=== PATIENT | male | born 1950 | race Caucasian/White ===

== ENCOUNTER 2016-06-25 06:40 | Inpatient (IN) | payer OTHER ==
[~2016-06-25] VITALS: Ht 185.4 cm; Wt 102.1 kg
[~2016-06-25 06:40] MED LIST: AMLO5TAB2 PO; ASPI1TAB PO; CELE20TA PO; LISI40TAB PO; PRAV40TA2 PO; ZYLO300T4 PO
[2016-06-25] MEDS ORDERED: LR 1,000 ML IV SCH ×2 (07:45→16:30)
[2016-06-25] MEDS: DOCUSATE SODIUM 100 MG CAP PO SCH ×2 (09:00→20:37)
[2016-06-25] MEDS ORDERED: MIDAZOLAM INJ 2 MG/2 ML VIAL (J2250) As Ordered ONE (09:41)
[2016-06-25] MEDS ORDERED: fentaNYL 250 MCG/5 ML INJECTION (J3010) As Ordered ONE (09:42)
[2016-06-25] MEDS ORDERED: LIDOCAINE 2% INJ 100 MG/5 ML SDV (FOR ANES.) As Ordered ONE (09:43)
[2016-06-25] MEDS ORDERED: PROPOFOL 200 MG/20 ML VIAL As Ordered ONE (09:44)
[2016-06-25] MEDS ORDERED: ROCURONIUM BROMIDE 50 MG/5 ML VIAL As Ordered ONE (09:45)
[2016-06-25] MEDS ORDERED: MORPHINE 2 MG/ML 1ML SYRINGE IV PRN (09:45)
[2016-06-25] MEDS ORDERED: ACETAMINOPHEN TAB 650MG DOSE (2X325MG) PO PRN (09:45)
[2016-06-25] MEDS ORDERED: ONDANSETRON 4MG/2ML VIAL (J2405) IV PRN (09:45)
[2016-06-25] MEDS ORDERED: LIDOCAINE 1% SDV INJ 30 ML VIAL As Ordered ONE (09:46)
[2016-06-25] MEDS ORDERED: BUPIVACAINE HCL 0.25% 30 ML VIAL As Ordered ONE (09:46)
[2016-06-25] MEDS ORDERED: dexameTHASONE 4 MG/ML 1ML VIAL (J1100) As Ordered ONE (10:45)
[2016-06-25] MEDS ORDERED: METOCLOPRAMIDE INJ 10MG/2ML VIAL (J2765) As Ordered ONE (10:45)
[2016-06-25] MEDS ORDERED: BUPIVACAINE HCL 0.25% 30 ML VIAL XX ONE (11:39)
[2016-06-25] MEDS ORDERED: LIDOCAINE 1% SDV INJ 30 ML VIAL XX ONE (11:39)
[2016-06-25] MEDS ORDERED: NEOSTIGMINE 1MG/ML 5 ML SYRINGE (J2710) As Ordered ONE (15:32)
[2016-06-25] MEDS ORDERED: GLYCOPYRROLATE INJ 0.2 MG/ML 2 ML VIAL As Ordered ONE (15:33)
[2016-06-25] MEDS ORDERED: ONDANSETRON 4MG/2ML VIAL (J2405) As Ordered ONE (15:38)
[2016-06-25] MEDS ORDERED: fentaNYL 100 MCG/2 ML INJECTION (J3010) IV PRN (16:30)
[2016-06-25] MEDS ORDERED: HYDROmorphone HCL 1 MG/ML SYRINGE (J1170) IV PRN (16:30)
[2016-06-25] MEDS ORDERED: PERCOCET 5MG/325MG TAB PO PRN (16:30)
[2016-06-25 16:33] LABS: MEAN CORPUSCULAR HEMOGLOBIN 32.1 pg (27.0-33.0); MEAN CORPUSCULAR HGB CONC 34.5 g/dl (32.0-36.5); MEAN CORPUSCULAR VOLUME 93.1 fl (80.0-96.0); RED CELL DISTRIBUTION WIDTH 14.7 % (11.5-14.5); WHITE BLOOD COUNT 17.6 K/mm3 (4.0-10.0)
[2016-06-25 16:37] LABS: CALCIUM LEVEL 8.3 MG/DL (8.8-10.2); CREATININE FOR GFR 1.52 MG/DL (0.70-1.30); GLOMERULAR FILTRATION RATE 49.4 (>49); POTASSIUM SERUM 4.4 MEQ/L (3.5-5.1)
--- NOTE | 2016-06-25 16:51 | ROOPDOC ---
[facility] Report Of Operation Report of Operation DATE OF PROCEDURE: 06/25/16 PREPROCEDURE DIAGNOSIS: Right Renal Mass POSTPROCEDURE DIAGNOSIS: Right Renal Mass PROCEDURE: Right Robotic-assisted Laparoscopic Radical Nephrectomy (adrenal- sparing) SURGEON: Yadiel Mccall MD WELT EDGE ROUNDER: Kisha Subramanian NP ANESTHESIA: General OPERATIVE INDICATIONS: This is a 66 year old male who was recently found to have an 8cm enhancing right renal mass concerning for malignancy. It was recommended that he undergo the above-listed procedure for treatment. DESCRIPTION OF PROCEDURE: The patient was brought to the operating room and general anesthesia was induced. Prophylactic antibiotics were infused. A Cabello catheter was placed under sterile conditions. The patient was then placed in the left lateral decubitus position. All pressure points were appropriately padded and an axillary roll was placed. He was secured to the table with tape. The patient was then prepped and draped in the usual sterile fashion. The initial incision was for a 12 mm port in line with the 11th rib along the lateral rectus margin. A Veress needle was then utilized to achieve the pneumoperitoneum. A 12 mm port was then placed in through this incision and through which the camera was inserted. There were no injuries from Veress needle placement or initial trocar placement. The remaining ports were then placed under vision. The right hand robotic port was placed along the costal margin as well as a 5 mm assistant warehouse manager port which was placed midway between the camera port and the right hand robotic port along the lateral rectus margin. Another 5 mm port was placed just inferior to the xyphoid for access for a liver retractor. The 15 mm assistant warehouse manager port was placed just inferior to the camera port, also on the lateral rectus margin. The left hand robotic port was placed between the anterior-superior iliac spine and the umbilicus. The robot was then docked. We began by lifting up the liver with a laparoscopic locking Allis clamp. Next the right colon was dissected off of Gerota's fascia. We then Kocherized the duodenum. At this point the inferior vena cava (IVC) was identified. A plane was made onto the lateral aspect of the IVC and this was carried cephalad until the right renal vein was encountered. This was carefully dissected and just inferior and posterior to the renal vein, the right renal artery was identified. This was also carefully dissected and then ligated with Weck clips. The artery was then transected, leaving 2 Weck clips on the stay side and 1 on the kidney side. Next, a laparoscopic 60 load stapler was utilized to ligate and transect the right renal vein. Once the hilum was taken, a plane onto the upper pole of the kidney was created and the right adrenal gland was mobilized off of the kidney. There did not appear to be any tumor involvement of the right adrenal gland. The kidney was then carefully dissected on all sides until it was only connected by the right ureter. The right ureter was then ligated with Weck clips and transected in between. At this point the kidney was completely free. The kidney was then placed in a large Endocatch bag for future retrieval. We then checked for hemostasis and it appeared excellent. Timmy hemostatic agent was then placed in the nephrectomy bed and along the inferior portion of the adrenal gland. Once satisfied with hemostasis, the robot was undocked. We then used a Dimple fascial closure device to place a #0 Vicryl free tie through the fascia of the 12 mm camera port site. We then connected the 15 mm assistant warehouse manager port and the left hand robotic port site incisions. We then dissected down to the fascia. The fascia was then extended using electrocautery. The muscle was bluntly spread. The specimen was then extracted through this incision. It was handed off the table to send for pathology. We then closed the extraction incision, starting first by reapproximating the muscle with figure of eight #0 Vicryl suture. The fascia was then closed using a running #0 Vicryl suture. At this point, the abdomen was reinsufflated and we looked back in with the camera and there was no bleeding underneath the extraction site. No abdominal contents were caught within the closure either. We then removed all the ports under direct vision and there was no bleeding from any of the port sites. At this point, the previously placed #0 Vicryl free tie was tied down and all the incisions were thoroughly irrigated. The subcutaneous tissue of the extraction incision was then reapproximated using interrupted #3-0 Vicryl suture. We then closed the skin of each site using a running #4-0 subcuticular Monocryl stitch. Local anesthetic was then applied to each incision and Dermabond was then applied and this marked the conclusion of the procedure. The patient was then taken out of the left lateral decubitus position, awakened from anesthesia and transported to the recovery room in stable condition. ESTIMATED BLOOD LOSS: 200 mL INTRAOPERATIVE COMPLICATIONS: None SPECIMENS: Right kidney PLAN: The patient will be admitted to the hospital postoperatively and he will be discharged home once his renal function is stable and he is tolerating regular diet. YADIEL MCCALL MD Jun 25, 2016 16:51
[2016-06-25 17:30] VITALS: BP 158/83
[2016-06-25] MEDS: NS 1,000 ML IV SCH ×2 (17:43→18:29)
[2016-06-25 18:00] VITALS: BP 158/83
[2016-06-25] MEDS: ceFAZolin SOD 1 GM in D5W MINI-BAG PLUS 50 ML IV SCH (18:25)
[2016-06-25 19:00] VITALS: BP 146/78
[2016-06-25] MEDS: ALLOPURINOL 300 MG TAB PO SCH (19:05)
[2016-06-25] MEDS: amLODIPine 5 MG TAB PO SCH (19:05)
[2016-06-25 20:00] VITALS: BP 142/76
[2016-06-25] MEDS: CitaloPRAM (CeleXA) 20 MG TAB PO SCH (20:37)
[2016-06-25] MEDS: PRAVASTATIN 20 MG TAB PO SCH (20:37)
[2016-06-25] MEDS: PERCOCET 5MG/325MG TAB PO PRN (20:39)
[2016-06-25 21:00] VITALS: BP 150/79
[2016-06-25 22:00] VITALS: BP 145/73
[2016-06-26] MEDS: ceFAZolin SOD 1 GM in D5W MINI-BAG PLUS 50 ML IV SCH (00:46)
[2016-06-26] MEDS: NS 1,000 ML IV SCH ×2 (00:46→11:36)
[2016-06-26] MEDS: PERCOCET 5MG/325MG TAB PO PRN ×6 (00:47→21:34)
[2016-06-26 02:00] VITALS: BP 136/74
[2016-06-26 05:39] LABS: MEAN CORPUSCULAR HEMOGLOBIN 31.4 pg (27.0-33.0); MEAN CORPUSCULAR HGB CONC 34.2 g/dl (32.0-36.5); MEAN CORPUSCULAR VOLUME 91.9 fl (80.0-96.0); RED CELL DISTRIBUTION WIDTH 14.7 % (11.5-14.5)
[2016-06-26 05:50] LABS: CALCIUM LEVEL 8.3 MG/DL (8.8-10.2); CREATININE FOR GFR 1.57 MG/DL (0.70-1.30); GLOMERULAR FILTRATION RATE 47.6 (>49); POTASSIUM SERUM 4.3 MEQ/L (3.5-5.1)
[2016-06-26 06:00] VITALS: BP 133/70
[2016-06-26] MEDS: ALLOPURINOL 300 MG TAB PO SCH (08:51)
[2016-06-26] MEDS: amLODIPine 5 MG TAB PO SCH (08:52)
[2016-06-26] MEDS: DOCUSATE SODIUM 100 MG CAP PO SCH ×2 (08:52→20:10)
[2016-06-26 10:00] VITALS: BP 138/68
--- NOTE | 2016-06-26 11:25 | IPNPDOC ---
Date of Service The patient was seen on 06/26/16. Patient Summary This is a 66 y/o M POD1 s/p right robotic-assisted laparoscopic radical nephrectomy. He is doing well. His pain is controlled. His Cr bumped a little to 1.6. His UOP is excellent. His Hb is stable at 12.2. Plan/VTE VTE Prophylaxis Ordered?: Yes VTE Exclusion Mechanical Proph: N/A:VTE Prophy Ordered Plan/Urinary Catheter Urinary Catheter: D/C Courtney Plan - d/c courtney - decrease IVF to 50cc/hr - percocet, morphine prn pain - ambulate as tolerated - strict I/Os - SCDs - continue home meds except AVELINO-I - incentive spirometry - advance diet as tolerated Review oF Systems CC/HPI Right Renal Mass Events since Last Encounter No acute events o/n. Good pain control. No n/v. No f/c/ns. Physical Examination General Exam: : Alert: Cooperative: No Acute Distress ENT EXAM: : Atraumatic ABDOMEN EXAM: : Other (incisions clean/dry/intact): Soft: Tenderness ( appropriately tender) Psych Exam: : Mental status NL: Mood NL Other physical findings catheter in place, draining clear urine Vital Signs/I&O Vital Signs Date Time Temp Pulse Resp B/P Pulse Ox O2 Delivery O2 Flow Rate FiO2 06/26/16 10:00 97.4 85 20 138/68 94 Nasal Cannula 2.0 I&O- Last 24 Hours up to 6 AM 06/26/16 06:00 Intake Total 4670 ml Output Total 2240 ml Balance 2430 ml Laboratory Data Labs 24H Laboratory Tests 2 06/25/16 16:05: Anion Gap 13, Blood Urea Nitrogen 17, Creatinine 1.52H, Sodium Level 140, Potassium Level 4.4, Chloride Level 104, Carbon Dioxide Level 23, Calcium Level 8.3L, Glomerular Filtration Rate 49.4 06/26/16 05:28: Anion Gap 11, Blood Urea Nitrogen 18, Creatinine 1.57H, Sodium Level 139, Potassium Level 4.3, Chloride Level 102, Carbon Dioxide Level 26, Calcium Level 8.3L, Glomerular Filtration Rate 47.6L CBC/BMP Laboratory Tests 06/25/16 16:05 Calcium Level 8.3 L, Red Blood Count 4.10 L, Mean Corpuscular Volume 93.1, Mean Corpuscular Hemoglobin 32.1, Mean Corpuscular Hemoglobin Concent 34.5, Red Cell Distribution Width 14.7 H 06/26/16 05:28 Calcium Level 8.3 L, Red Blood Count 3.89 L, Mean Corpuscular Volume 91.9, Mean Corpuscular Hemoglobin 31.4, Mean Corpuscular Hemoglobin Concent 34.2, Red Cell Distribution Width 14.7 H YADIEL MCCALL MD Jun 26, 2016 11:25
[2016-06-26 14:00] VITALS: BP 132/67
[2016-06-26 18:00] VITALS: BP 147/79
[2016-06-26] MEDS: PRAVASTATIN 20 MG TAB PO SCH (20:10)
[2016-06-26] MEDS: CitaloPRAM (CeleXA) 20 MG TAB PO SCH (20:10)
[2016-06-26 22:00] VITALS: BP 145/83
[2016-06-27] MEDS: PERCOCET 5MG/325MG TAB PO PRN ×3 (01:52→09:53)
[2016-06-27 02:00] VITALS: BP 148/67
[2016-06-27 06:00] VITALS: BP 138/75
[2016-06-27 06:29] LABS: MEAN CORPUSCULAR HEMOGLOBIN 31.7 pg (27.0-33.0); MEAN CORPUSCULAR HGB CONC 34.1 g/dl (32.0-36.5); MEAN CORPUSCULAR VOLUME 93.1 fl (80.0-96.0); RED CELL DISTRIBUTION WIDTH 13.8 % (11.5-14.5); WHITE BLOOD COUNT 11.2 K/mm3 (4.0-10.0)
[2016-06-27 06:39] LABS: CALCIUM LEVEL 8.4 MG/DL (8.8-10.2); CREATININE FOR GFR 1.35 MG/DL (0.70-1.30); GLOMERULAR FILTRATION RATE 56.6 (>49)
[2016-06-27 08:38] VITALS: BP 138/75
[2016-06-27] MEDS: DOCUSATE SODIUM 100 MG CAP PO SCH (08:38)
[2016-06-27] MEDS: ALLOPURINOL 300 MG TAB PO SCH (08:38)
[2016-06-27] MEDS: amLODIPine 5 MG TAB PO SCH (08:38)
--- NOTE | 2016-06-27 11:23 | IPNPDOC ---
Date of Service The patient was seen on 06/27/16. Patient Summary This is a 66 y/o M POD2 s/p right robotic-assisted laparoscopic radical nephrectomy. He is doing well. His Cr has started trending down, now 1.4. His UOP has been excellent. His Hb is stable and vitals are w/i normal limits. Plan/VTE VTE Prophylaxis Ordered?: Yes VTE Exclusion Mechanical Proph: N/A:VTE Prophy Ordered Plan - percocet prn pain - strict I/Os - SCDs - incentive spirometry - regular diet - plan for discharge home today Review oF Systems CC/HPI Right Renal Mass Events since Last Encounter No acute events o/n. Good pain control w/ percocet. No n/v. Passing flatus. Tolerating regular diet. Ambulating well. No f/c/ns. Physical Examination General Exam: : Alert: Cooperative: No Acute Distress ENT EXAM: : Atraumatic ABDOMEN EXAM: : Other (incisions clean/dry/intact): Soft: Tenderness ( appropriately tender) Psych Exam: : Mental status NL: Mood NL Vital Signs/I&O Vital Signs Date Time Temp Pulse Resp B/P Pulse Ox O2 Delivery O2 Flow Rate FiO2 06/27/16 10:31 16 06/27/16 09:55 96 Room Air 06/27/16 09:20 1.0 06/27/16 08:38 80 138/75 06/27/16 08:14 98.6 I&O- Last 24 Hours up to 6 AM 06/27/16 06:00 Intake Total 3030 ml Output Total 2950 ml Balance 80 ml Laboratory Data Labs 24H Laboratory Tests 2 06/27/16 05:39: Anion Gap 8, Blood Urea Nitrogen 16, Creatinine 1.35H, Sodium Level 142, Potassium Level 4.0, Chloride Level 105, Carbon Dioxide Level 29, Calcium Level 8.4L, Glomerular Filtration Rate 56.6 CBC/BMP Laboratory Tests 06/27/16 05:39 Calcium Level 8.4 L, Red Blood Count 3.51 L, Mean Corpuscular Volume 93.1, Mean Corpuscular Hemoglobin 31.7, Mean Corpuscular Hemoglobin Concent 34.1, Red Cell Distribution Width 13.8 YADIEL MCCALL MD Jun 27, 2016 11:23
[2016-06-27] MEDS ORDERED: OXYC1TAB23 PO (11:48)
[2016-06-27] MEDS ORDERED: TYLE325T5 PO (11:48)
[2016-06-27] MEDS ORDERED: COLA100C PO (11:48)
--- NOTE | 2016-06-29 07:10 | DSES ---
DATE OF ADMISSION: 06/25/2016 DATE OF DISCHARGE: 06/27/2016 ADMISSION DIAGNOSES: Right renal mass. DISCHARGE DIAGNOSES: Right renal mass. ADMITTING PHYSICIAN: Trey Ruiz MD. DISCHARGING PHYSICIAN; Trey Ruiz MD. PROCEDURE PERFORMED: Right robotic assisted laparoscopic radical nephrectomy on June 25, 2016. HISTORY OF PRESENT ILLNESS: This is a 66-year-old male with a large, enhancing 8 cm right renal mass who was brought to the hospital on June 25, 2016 for the above listed procedure. He was admitted to the hospital postoperatively. HOSPITAL COURSE: The patient was admitted to the hospital after undergoing the above listed procedure. His postoperative course was unremarkable. On postoperative day one his serum creatinine seemed to be stable at 1.6. His hemoglobin level was stable. He was making excellent urine output. His pain was controlled with a combination of Percocet and morphine. His Cabello catheter was removed on postoperative day one and he voided without any difficulty. By postoperative day two his serum creatinine improved even more to 1.4 and his urine output continued to be excellent. His hemoglobin continued to be stable. By postoperative day two his pain was controlled only with Percocet. He was tolerating a regular diet and he was passing flatus indicating return of bowel function. He was ambulating well and therefore he was deemed ready for discharge on postoperative day two. The patient was therefore discharged home in good condition with the plan to followup in the clinic in about 1-2 weeks to discuss pathology results. LINDA
== END 2016-06-27 12:34 | disposition home or self-care (01) | DRG 442 ==
LOC: M OR 06:40 → M MS5PR 17:05
PROVIDERS: ADMIT Urology; ATTEND Urology
PROC: 8E0W4CZ Robotic Assisted Procedure of Trunk Region, Percutaneous Endoscopic Approach (ICD-10-PCS; 2016-06-25)
PROC: 0TT04ZZ Resection of Right Kidney, Percutaneous Endoscopic Approach (ICD-10-PCS; principal; 2016-06-25 08:10)
DX: C64.1 Malignant neoplasm of right kidney, except renal pelvis (principal); Z79.82 Long term (current) use of aspirin; I10 Essential (primary) hypertension; Z79.899 Other long term (current) drug therapy; M10.9 Gout, unspecified

== ENCOUNTER → 2016-07-08 | Outpatient (CLI) | payer OTHER ==
[~2016-07-08] MED LIST changes: +COLA100C PO; +OXYC1TAB23 PO; +TYLE325T5 PO
[2016-07-08 14:23] LABS: ANION GAP 7 MEQ/L (8-16); BLOOD UREA NITROGEN 16 MG/DL (7-18); CALCIUM LEVEL 9.8 MG/DL (8.8-10.2); CARBON DIOXIDE LEVEL 29 MEQ/L (21-32); CHLORIDE LEVEL 106 MEQ/L (98-107); CREATININE FOR GFR 1.24 MG/DL (0.70-1.30); GLOMERULAR FILTRATION RATE > 60.0 (>49); GLUCOSE, FASTING 86 MG/DL (80-110); POTASSIUM SERUM 4.9 MEQ/L (3.5-5.1); SODIUM LEVEL 142 MEQ/L (136-145)
[2016-07-08 14:29] LABS: MEAN CORPUSCULAR HEMOGLOBIN 31.7 pg (27.0-33.0); MEAN CORPUSCULAR VOLUME 93.3 fl (80.0-96.0); RED CELL DISTRIBUTION WIDTH 13.9 % (11.5-14.5)
== END ==
LOC: M SMT 10:01
PROVIDERS: ATTEND Urology
DX: C64.9 Malignant neoplasm of unspecified kidney, except renal pelvis (principal); Z90.5 Acquired absence of kidney

== ENCOUNTER → 2017-01-03 | Outpatient (CLI) | payer OTHER ==
[~2017-01-03] MED LIST changes: -COLA100C PO; +COLA100C5 PO
[2017-01-03 13:30] LABS: MEAN CORPUSCULAR HGB CONC 34.8 g/dl (32.0-36.5); MEAN CORPUSCULAR VOLUME 92.1 fl (80.0-96.0); RED CELL DISTRIBUTION WIDTH 15.2 % (11.5-14.5)
[2017-01-03 14:44] LABS: CALCIUM LEVEL 9.3 MG/DL (8.8-10.2); CREATININE FOR GFR 1.37 MG/DL (0.70-1.30); GLOMERULAR FILTRATION RATE 55.7 (>49)
--- NOTE | 2017-01-03 23:01 | REP ---
Clinical: Neoplasm . Comparison: 06/22/2016 the . Technique: PA and lateral. Findings: The mediastinum and cardiac silhouette are normal. The lung valle are clear and without acute consolidation, effusion, or pneumothorax. The skeletal structures are intact and normal. Impression: 1. No acute cardiopulmonary process. Signed by Stefan Wells MD 01/03/2017 10:53 P
== END ==
LOC: M LAB 12:21
PROVIDERS: ATTEND Urology
DX: C64.9 Malignant neoplasm of unspecified kidney, except renal pelvis (principal); Z90.5 Acquired absence of kidney

== ENCOUNTER → 2017-01-11 | Outpatient (CLI) | payer OTHER ==
[~2017-01-11] MED LIST changes: +ISOVUE-370 76% 100ML VIAL (Q9967) As Ordered ONE
--- NOTE | 2017-01-11 09:32 | REP ---
CT abdomen, multiphase scanning, pelvis not included: Comparison is 06/04/2016. The patient has a history of renal carcinoma and a right nephrectomy. Scanning is initially performed without IV contrast. This is followed by IV contrast enhanced imaging during the portal venous phase of enhancement and later during the delayed equilibrium phase of enhancement. There is no bowel contrast. The visualized lung valle are unremarkable and unchanged. There is a focal zone of enhancement centrally in the right lobe of the liver as previously. This region of the liver was biopsied under CT guidance. Needle biopsy on 06/17/2016. No information concerning the pathology report of the biopsy. The remainder of the hepatic parenchyma is homogeneous and unchanged. The gallbladder, pancreas and spleen are normal size, unremarkable and unchanged. The right and left adrenals are unremarkable and unchanged. There has been interim right nephrectomy. There is no evidence of tumor recurrence in the right renal fossa. There are too small left renal cortical cysts, not significantly changed. Left kidney is otherwise unremarkable. The abdominal aorta is unremarkable. There is no retroperitoneal adenopathy. The visualized mesentery and bowel are unremarkable. There are no lytic, blastic or destructive skeletal changes. There is a lucent lesion containing trabeculations posteriorly in the T12 vertebral body on the right, unchanged, compatible with hemangioma. There are similar findings in the L4 vertebral body compatible with hemangioma, unchanged. Impression: Right nephrectomy. No evidence of tumor recurrence in the right renal fossa. No abdominal or retroperitoneal adenopathy. Focal lucent lesions containing a trabecular pattern in the T12 and L4 vertebral bodies, unchanged, compatible with focal hemangiomas. Previous liver biopsy. I have no information concerning the pathologic report on the biopsy specimen. Signed by Dante Cheng MD 01/11/2017 09:23 A
== END ==
LOC: M RAD 08:24
PROVIDERS: ATTEND Urology
DX: C64.9 Malignant neoplasm of unspecified kidney, except renal pelvis (principal)

== ENCOUNTER → 2017-07-26 | Outpatient (CLI) | payer OTHER ==
[2017-07-26 14:23] LABS: APPEARANCE, URINE CLEAR (CLEAR); BACTERIA, URINE AUTO NEGATIVE (NEGATIVE); BILIRUBIN, URINE AUTO NEGATIVE (NEGATIVE); BLOOD, URINE BLOOD NEGATIVE (NEGATIVE); COLOR, URINE YELLOW (YELLOW); GLUCOSE, URINE (UA) AUTO NEGATIVE (NEGATIVE); KETONE, URINE AUTO NEGATIVE (NEGATIVE); LEUKOCYTE ESTERASE, URINE AUTO NEGATIVE (NEGATIVE); MUCUS, URINE SMALL (NEGATIVE); NITRITE, URINE AUTO NEGATIVE (NEGATIVE); PROTEIN, URINE AUTO 1+ mg/dL (NEGATIVE); RBC, URINE AUTO 0 /HPF (0-3); SPECIFIC GRAVITY URINE AUTO 1.016 (1.002-1.035); SQUAMOUS EPITHELIAL CELL UR AU 0 /HPF (0-6); WBC, URINE AUTO 5 /HPF (0-3)
[2017-07-26 14:25] LABS: ANION GAP 8 MEQ/L (8-16); BLOOD UREA NITROGEN 9 MG/DL (7-18); CALCIUM LEVEL 9.1 MG/DL (8.8-10.2); CARBON DIOXIDE LEVEL 27 MEQ/L (21-32); CHLORIDE LEVEL 103 MEQ/L (98-107); CREATININE FOR GFR 1.25 MG/DL (0.70-1.30); GLOMERULAR FILTRATION RATE > 60.0 (>49); GLUCOSE, FASTING 110 MG/DL (70-100); POTASSIUM SERUM 3.8 MEQ/L (3.5-5.1); PSA SCREENING 0.45 NG/ML (< 4.0); SODIUM LEVEL 138 MEQ/L (136-145)
== END ==
LOC: M SMT 09:50
DX: C64.9 Malignant neoplasm of unspecified kidney, except renal pelvis (principal); Z90.5 Acquired absence of kidney; Z12.5 Encounter for screening for malignant neoplasm of prostate
CPT/HCPCS: 80048

== ENCOUNTER → 2017-07-29 | Outpatient (CLI) | payer OTHER ==
[~2017-07-29] MED LIST changes: -AMLO5TAB2 PO; -ASPI1TAB PO; -CELE20TA PO; -COLA100C5 PO; +ISOVUE-370 76% 100ML VIAL (Q9967) As Ordered; -ISOVUE-370 76% 100ML VIAL (Q9967) As Ordered ONE; -LISI40TAB PO; -OXYC1TAB23 PO; -PRAV40TA2 PO; -TYLE325T5 PO; -ZYLO300T4 PO
== END ==
LOC: M RAD 08:29
DX: C64.9 Malignant neoplasm of unspecified kidney, except renal pelvis (principal); Z90.5 Acquired absence of kidney
CPT/HCPCS: Q9967

== ENCOUNTER → 2017-12-06 | Outpatient (REF) | payer OTHER ==
[2017-12-06 11:47] LABS: BASO # 0.1 10^3/uL (0.0-0.2); BASO % 1.1 % (0.0-1.0); EOS # 0.2 10^3/uL (0.0-0.50); EOS % 3.5 % (0.0-3.0); HEMATOCRIT 46.1 % (42.0-52.0); HEMOGLOBIN 16.4 g/dl (13.5-17.5); IMMATURE GRANULOCYTE % 0.6 % (0-3.0); LYMPH # 1.1 10^3/uL (1.5-4.5); LYMPH % 17.2 % (24.0-44.0); MEAN CORPUSCULAR HEMOGLOBIN 31.9 pg (27.0-33.0); MEAN CORPUSCULAR HGB CONC 35.6 g/dl (32.0-36.5); MEAN CORPUSCULAR VOLUME 89.7 fl (80.0-96.0); MONO # 0.7 10^3/uL (0.0-0.8); MONO % 11.6 % (0.0-5.0); NEUTROPHILS # 4.1 10^3/uL (1.8-7.7); PLATELET COUNT, AUTOMATED 232 10^3/uL (150-450); RED BLOOD COUNT 5.14 10^6/uL (4.30-6.10); RED CELL DISTRIBUTION WIDTH 14.4 % (11.5-14.5); WHITE BLOOD COUNT 6.3 10^3/uL (4.0-10.0)
[2017-12-06 12:20] LABS: ALBUMIN 4.2 GM/DL (3.2-5.2); ALKALINE PHOSPHATASE 67 U/L (45-117); ALT/SGPT 36 U/L (12-78); ANION GAP 7 MEQ/L (8-16); AST/SGOT 23 U/L (7-37); BLOOD UREA NITROGEN 13 MG/DL (7-18); CALCIUM LEVEL 9.2 MG/DL (8.8-10.2); CARBON DIOXIDE LEVEL 26 MEQ/L (21-32); CHLORIDE LEVEL 105 MEQ/L (98-107); CHOLESTEROL LEVEL 208 MG/DL (<200); CHOLESTEROL RISK RATIO 5.777 (<5); CREATININE FOR GFR 1.11 MG/DL (0.70-1.30); GLOMERULAR FILTRATION RATE > 60.0 (>49); GLUCOSE, FASTING 91 MG/DL (70-100); HDL CHOLESTEROL 36 MG/DL (>40); NON-HDL-C 172 MG/DL; POTASSIUM SERUM 4.1 MEQ/L (3.5-5.1); PSA SCREENING 0.66 NG/ML (< 4.0); SODIUM LEVEL 138 MEQ/L (136-145); TOTAL PROTEIN 7.7 GM/DL (6.4-8.2); TRIGLYCERIDES LEVEL 604 MG/DL (<150)
[2017-12-06 12:22] LABS: ESTIMATED AVERAGE GLUCOSE 111 MG/DL (60-110); HEMOGLOBIN A1c 5.5 %
[2017-12-06 12:28] LABS: MAU/CREAT RATIO 200.8 MCG/MG (0.0-30.0)
== END ==
LOC: M SFHCLERA 08:19
DX: I10 Essential (primary) hypertension (principal); Z12.5 Encounter for screening for malignant neoplasm of prostate
CPT/HCPCS: 84443

== ENCOUNTER → 2018-01-05 | Outpatient (REF) | payer OTHER ==
[2018-01-05 16:51] LABS: TOTAL VOLUME, URINE 2600 ML
[2018-01-05 22:11] LABS: TOTAL PROTEIN 24 HOUR URINE 288.6 MG/24HR (50-150); URINE TOTAL PROTEIN 11.1 MG/DL (0-12)
== END ==
LOC: M SFHCLERA 16:30
DX: R80.9 Proteinuria, unspecified (principal)
CPT/HCPCS: 81050

== ENCOUNTER → 2018-01-31 | Outpatient (REF) | payer OTHER ==
[2018-01-31 11:54] LABS: ANION GAP 10 MEQ/L (8-16); BLOOD UREA NITROGEN 13 MG/DL (7-18); CALCIUM LEVEL 9.1 MG/DL (8.8-10.2); CARBON DIOXIDE LEVEL 26 MEQ/L (21-32); CHLORIDE LEVEL 104 MEQ/L (98-107); CREATININE FOR GFR 1.17 MG/DL (0.70-1.30); GLOMERULAR FILTRATION RATE > 60.0 (>49); GLUCOSE, FASTING 92 MG/DL (70-100); POTASSIUM SERUM 3.9 MEQ/L (3.5-5.1); SODIUM LEVEL 140 MEQ/L (136-145)
== END ==
LOC: M SFHCLERA 08:11
DX: I10 Essential (primary) hypertension (principal)
CPT/HCPCS: 80048

== ENCOUNTER → 2018-02-13 | Outpatient (REF) | payer OTHER ==
[2018-02-13 18:11] LABS: TOTAL PROTEIN,RANDOM URINE 5.5 MG/DL (0.0-12.0)
== END ==
LOC: M LAB REF 17:35
DX: R80.9 Proteinuria, unspecified (principal); Z90.5 Acquired absence of kidney
CPT/HCPCS: 84156

== ENCOUNTER → 2018-07-17 | Outpatient (REF) | payer MEDICARE ==
[~2018-07-17] MED LIST changes: +AMLO5TAB6 PO; +ASPI1TAB PO; +CELE20TA PO; +COLA100C5 PO; -ISOVUE-370 76% 100ML VIAL (Q9967) As Ordered; +LISI40TA PO; +OXYC1TAB23 PO; +PRAV40TA2 PO; +TYLE325T5 PO; +ZYLO300T6 PO
[2018-07-17 11:43] LABS: BLOOD UREA NITROGEN 15 MG/DL (7-18); CALCIUM LEVEL 9.1 MG/DL (8.8-10.2); CARBON DIOXIDE LEVEL 29 MEQ/L (21-32); CHLORIDE LEVEL 99 MEQ/L (98-107); CREATININE FOR GFR 1.09 MG/DL (0.70-1.30); GLOMERULAR FILTRATION RATE > 60.0 (>49); GLUCOSE, FASTING 112 MG/DL (70-100); POTASSIUM SERUM 3.3 MEQ/L (3.5-5.1); SODIUM LEVEL 138 MEQ/L (136-145)
== END ==
LOC: M LABSMT 09:33
PROVIDERS: ATTEND Urology
DX: I10 Essential (primary) hypertension (principal); Z90.5 Acquired absence of kidney

== ENCOUNTER → 2018-07-31 | Outpatient (CLI) | payer MEDICARE ==
[~2018-07-31] MED LIST changes: +ISOVUE-370 76% 100ML VIAL (Q9967) As Ordered ONE
--- NOTE | 2018-08-01 03:14 | REP ---
Clinical: History of neoplasm . Comparison: 01/03/2017 . Technique: PA and lateral. Findings: The mediastinum and cardiac silhouette are normal. The lung valle are clear and without acute consolidation, effusion, or pneumothorax. The skeletal structures are intact and normal. Impression: 1. No acute cardiopulmonary process. Electronically Signed by Stefan Wells MD 08/01/2018 03:06 A
--- NOTE | 2018-08-01 09:21 | REP ---
Clinical: History of nephrectomy for renal cell carcinoma. Technique: Axial contrast enhanced images from the lung bases to the pubic symphysis using 100 ml Isovue 370 intravenous contrast material with delayed images of the abdomen as well as coronal and sagittal re-formations. Comparison: 07/29/2017. Findings: Lung bases are clear. Visualized heart is within normal limits / stable. Two hyperenhancing areas within the right lobe of the liver (images 24, 36) which become isointense to hepatic parenchyma on delayed sequence remains stable. No new liver lesions are identified. Spleen, pancreas, gallbladder, bilateral adrenal glands and left kidney are stable. 1.7 cm simple left renal cyst identified. Evidence of prior right nephrectomy without recurrence. Visualized enteric system is without obstruction or acute inflammatory process. No ascites. No intraperitoneal or retroperitoneal adenopathy noted. Abdominal aorta without aneurysm. Musculoskeletal structures intact without focal osseous abnormality. Impression: 1. Stable hyperenhancing lesions within the right lobe of the liver. No new liver lesions noted. 2. Stable appearance to the left kidney with simple cyst. 3. No further acute abdominopelvic pathology appreciated. Electronically Signed by Stefan Wells MD 08/01/2018 09:12 A
== END ==
LOC: M RAD 09:05
PROVIDERS: ATTEND Urology
DX: Z90.5 Acquired absence of kidney (principal); I10 Essential (primary) hypertension
CPT/HCPCS: 71046; 74160; Q9967

== ENCOUNTER → 2018-08-21 | Outpatient (REF) | payer MEDICARE ==
[~2018-08-21] MED LIST changes: -ISOVUE-370 76% 100ML VIAL (Q9967) As Ordered ONE
== END ==
LOC: M LAB REF 12:30
PROVIDERS: ATTEND Internal Medicine Nephrology
DX: R80.9 Proteinuria, unspecified (principal); Z90.5 Acquired absence of kidney

== ENCOUNTER → 2018-11-29 | Outpatient (REF) | payer MEDICARE ==
[~2018-11-29] MED LIST changes: -ASPI1TAB PO; +ASPI81TA26 PO
[2018-11-29 14:17] LABS: BASO # 0.1 10^3/uL (0.0-0.2); BASO % 1.4 % (0.0-1.0); EOS # 0.3 10^3/uL (0.0-0.50); EOS % 4.3 % (0.0-3.0); HEMATOCRIT 45.8 % (42.0-52.0); HEMOGLOBIN 16.2 g/dl (13.5-17.5); LYMPH # 1.6 10^3/uL (1.5-4.5); LYMPH % 22.7 % (24.0-44.0); MEAN CORPUSCULAR HEMOGLOBIN 31.5 pg (27.0-33.0); MEAN CORPUSCULAR HGB CONC 35.4 g/dl (32.0-36.5); MEAN CORPUSCULAR VOLUME 89.1 fl (80.0-96.0); MONO # 0.9 10^3/uL (0.0-0.8); MONO % 13.1 % (0.0-5.0); NEUTROPHILS # 4.1 10^3/uL (1.8-7.7); NEUTROPHILS % 57.9 % (36.0-66.0); PLATELET COUNT, AUTOMATED 252 10^3/uL (150-450); RED BLOOD COUNT 5.14 10^6/uL (4.30-6.10); WHITE BLOOD COUNT 7.2 10^3/uL (4.0-10.0)
[2018-11-29 14:48] LABS: ALBUMIN 4.4 GM/DL (3.2-5.2); ALT/SGPT 36 U/L (12-78); BILIRUBIN,TOTAL 1.1 MG/DL (0.2-1.0); BLOOD UREA NITROGEN 12 MG/DL (7-18); CALCIUM LEVEL 9.2 MG/DL (8.8-10.2); CARBON DIOXIDE LEVEL 32 MEQ/L (21-32); CHLORIDE LEVEL 100 MEQ/L (98-107); CHOLESTEROL LEVEL 189 MG/DL (<200); CHOLESTEROL RISK RATIO 4.725 (<5); CREATININE FOR GFR 1.15 MG/DL (0.70-1.30); GLOMERULAR FILTRATION RATE > 60.0 (>49); GLUCOSE, FASTING 89 MG/DL (70-100); HDL CHOLESTEROL 40 MG/DL (>40); NON-HDL-C 149 MG/DL; POTASSIUM SERUM 3.6 MEQ/L (3.5-5.1); SODIUM LEVEL 140 MEQ/L (136-145); TOTAL PROTEIN 8.2 GM/DL (6.4-8.2); TRIGLYCERIDES LEVEL 421 MG/DL (<150); URIC ACID 6.5 MG/DL (3.5-7.2)
[2018-11-29 14:59] LABS: TOTAL PROTEIN,RANDOM URINE 47.6 MG/DL (0.0-12.0)
[2018-11-29 15:38] LABS: HEMOGLOBIN A1c 5.8 %
== END ==
LOC: M SFHCLERA 11:37
PROVIDERS: ATTEND Family Medicine
DX: R80.9 Proteinuria, unspecified (principal); I10 Essential (primary) hypertension; M1A.0710 Idiopathic chronic gout, right ankle and foot, without tophus (tophi)
CPT/HCPCS: 80053; 80061; 82570; 83036; 84156; 84550; 85025; G0463

== ENCOUNTER → 2019-07-31 | Outpatient (REF) | payer MEDICARE ==
[2019-07-31 12:52] LABS: BLOOD UREA NITROGEN 13 MG/DL (7-18); CALCIUM LEVEL 9.2 MG/DL (8.8-10.2); CARBON DIOXIDE LEVEL 33 MEQ/L (21-32); CHLORIDE LEVEL 101 MEQ/L (98-107); GLOMERULAR FILTRATION RATE > 60.0 (>49); GLUCOSE, FASTING 101 MG/DL (70-100); POTASSIUM SERUM 3.6 MEQ/L (3.5-5.1); SODIUM LEVEL 139 MEQ/L (136-145)
== END ==
LOC: M LABSMT 09:12
PROVIDERS: ATTEND Urology
DX: C64.9 Malignant neoplasm of unspecified kidney, except renal pelvis (principal); Z90.5 Acquired absence of kidney

== ENCOUNTER → 2019-08-07 | Outpatient (CLI) | payer MEDICARE ==
--- NOTE | 2019-08-07 10:31 | REP ---
Clinical: History of renal cell carcinoma with prior right nephrectomy. Technique: Axial contrast enhanced and delayed images of the abdomen using 100 ml Isovue 370 intravenous contrast material with coronal and sagittal re-formations. Comparison: Multiple examinations dated through 06/04/2016. Findings: Lung bases are clear. Hepatomegaly. Diffuse fatty infiltration to the liver and two stable hemangiomas in the right lobe are again identified and unchanged compared through 2016. No further focal hepatic lesion identified. Spleen, pancreas, gallbladder, bilateral adrenal glands and left kidney are essentially normal. Stable 2 cm left renal cyst again noted. The patient is status post right nephrectomy and in the right renal bed is unremarkable. Visualized portions of the enteric system are unremarkable including normal terminal ileum and appendix. No ascites. No free air. No adenopathy. Abdominal aorta and vasculature without aneurysm or dissection. Musculoskeletal structures without focal abnormality; incidental suspected hemangioma within the T11 vertebral body appears unchanged. Impression: 1. Hepatomegaly and fatty infiltration to the liver with stable hemangiomas unchanged compared through 2016. 2. Stable 2 cm left renal cyst. 3. No evidence for recurrence or metastatic disease. Electronically Signed by Stefan Wells MD 08/07/2019 10:22 A
== END ==
LOC: M RAD 08:52
PROVIDERS: ATTEND Urology
DX: C64.9 Malignant neoplasm of unspecified kidney, except renal pelvis (principal); Z90.5 Acquired absence of kidney

== ENCOUNTER → 2019-11-28 | Outpatient (REF) | payer OTHER ==
[2019-11-28 11:30] LABS: BASO # 0.1 10^3/uL (0.0-0.2); EOS # 0.2 10^3/uL (0.0-0.5); EOS % 3.3 % (0.0-3.0); HEMATOCRIT 48.2 % (42.0-52.0); LYMPH # 1.3 10^3/uL (1.5-5.0); LYMPH % 19.2 % (24.0-44.0); MEAN CORPUSCULAR HEMOGLOBIN 31.4 pg (27.0-33.0); MEAN CORPUSCULAR HGB CONC 35.3 g/dl (32.0-36.5); MEAN CORPUSCULAR VOLUME 89.1 fl (80.0-96.0); MONO # 0.9 10^3/uL (0.0-0.8); MONO % 12.7 % (0.0-5.0); NEUTROPHILS # 4.4 10^3/uL (1.5-8.5); NEUTROPHILS % 63.4 % (36.0-66.0); PLATELET COUNT, AUTOMATED 250 10^3/uL (150-450); RED BLOOD COUNT 5.41 10^6/uL (4.30-6.10); WHITE BLOOD COUNT 6.9 10^3/uL (4.0-10.0)
[2019-11-28 11:40] LABS: BLOOD UREA NITROGEN 14 MG/DL (7-18); CALCIUM LEVEL 9.1 MG/DL (8.8-10.2); CARBON DIOXIDE LEVEL 33 MEQ/L (21-32); CHLORIDE LEVEL 98 MEQ/L (98-107); CHOLESTEROL LEVEL 190 MG/DL (<200); CHOLESTEROL RISK RATIO 5.277 (<5); CREATININE FOR GFR 1.11 MG/DL (0.70-1.30); GLOMERULAR FILTRATION RATE > 60.0 (>49); GLUCOSE, FASTING 100 MG/DL (70-100); HDL CHOLESTEROL 36 MG/DL (>40); NON-HDL-C 154 MG/DL; POTASSIUM SERUM 3.2 MEQ/L (3.5-5.1); SODIUM LEVEL 137 MEQ/L (136-145); TRIGLYCERIDES LEVEL 426 MG/DL (<150)
== END ==
LOC: M SFHCLERA 07:57
PROVIDERS: ATTEND Family Medicine
DX: E78.2 Mixed hyperlipidemia (principal); I10 Essential (primary) hypertension

== ENCOUNTER → 2020-03-04 | Outpatient (REF) | payer MEDICARE, OTHER ==
[~2020-03-04] MED LIST changes: +AMLO1TAB24 PO; -AMLO5TAB6 PO
== END ==
LOC: M LAB REF 14:15
PROVIDERS: ATTEND Dermatology
DX: L81.4 Other melanin hyperpigmentation (principal); L57.8 Other skin changes due to chronic exposure to nonionizing radiation; L57.0 Actinic keratosis

== ENCOUNTER → 2020-06-25 | Outpatient (REF) | payer MEDICARE, OTHER ==
[2020-06-25 17:23] LABS: BACTERIA, URINE AUTO NEGATIVE (NEGATIVE); RBC, URINE AUTO 0 /HPF (0-3); SQUAMOUS EPITHELIAL CELL UR AU 0 /HPF (0-6); WBC, URINE AUTO 0 /HPF (0-3)
== END ==
LOC: M LAB REF 16:57
PROVIDERS: ATTEND Nurse Practitioner Family
DX: R31.29 Other microscopic hematuria (principal)

== ENCOUNTER → 2020-09-01 | Outpatient (CLI) | payer MEDICARE ==
[~2020-09-01] MED LIST changes: -LISI40TA PO; +LISI40TA4 PO
[2020-09-01 10:51] LABS: BLOOD UREA NITROGEN 13 MG/DL (7-18); CALCIUM LEVEL 9.3 MG/DL (8.8-10.2); CARBON DIOXIDE LEVEL 29 MEQ/L (21-32); CHLORIDE LEVEL 101 MEQ/L (98-107); CREATININE FOR GFR 1.25 MG/DL (0.70-1.30); GLOMERULAR FILTRATION RATE > 60.0 (>49); GLUCOSE, FASTING 89 MG/DL (70-100); POTASSIUM SERUM 3.7 MEQ/L (3.5-5.1); SODIUM LEVEL 137 MEQ/L (136-145)
== END ==
LOC: M PLALAB 08:37
PROVIDERS: ATTEND Urology
DX: Z12.5 Encounter for screening for malignant neoplasm of prostate (principal); C64.9 Malignant neoplasm of unspecified kidney, except renal pelvis; Z90.5 Acquired absence of kidney
CPT/HCPCS: 36415; 80048; G0103

== ENCOUNTER → 2020-09-02 | Outpatient (CLI) | payer MEDICARE ==
[~2020-09-02] MED LIST changes: +ISOVUE-370 76% 100ML VIAL As Ordered ONE
--- NOTE | 2020-09-02 10:19 | REP ---
INDICATION: RENAL CELL CA. COMPARISON: Multiple examinations dating through 01/11/2017 TECHNIQUE: Axial contrast-enhanced images of the abdomen using 100 cc Isovue 370 intravenous contrast material with coronal and sagittal reformations. Delayed images of the abdomen along with coronal and sagittal reformations obtained. This CT examination was performed using the following dose reduction techniques: Automated exposure control, adjustment of mA and/or kv according to the patient's size, and use of iterative reconstruction technique. FINDINGS: Vague hyperenhancing areas within the liver along with diffuse fatty infiltration remain relatively stable. No new focal hepatic lesions are identified. Spleen, pancreas, gallbladder, bilateral adrenal glands are normal. Left kidney demonstrates 2 benign cysts measuring 11 mm upper pole and 21 mm midpole which have gradually increased in size compared through 2017. Patient is noted to be status post right nephrectomy with normal appearance to the right renal fossa and no evidence for local recurrence or metastatic disease. The visualized enteric system is without obstruction or acute inflammatory process. No ascites. No free air. No adenopathy. Atherosclerotic changes to the aorta and vasculature noted without aneurysm or dissection. Stable 1 cm fat containing periumbilical hernia again noted. Osseous structures demonstrate stable degenerative changes without acute process. IMPRESSION: 1. Benign left renal cysts. 2. Prior right nephrectomy without evidence for local recurrence or metastatic disease. 3. Stable hyperenhancing areas within the liver and underlying fatty infiltration without new acute hepatic abnormality. <Electronically signed by Stefan Wells > 09/02/20 [id number]
== END ==
LOC: M RAD 08:58
PROVIDERS: ATTEND Urology
DX: C64.9 Malignant neoplasm of unspecified kidney, except renal pelvis (principal); Z90.5 Acquired absence of kidney; N28.1 Cyst of kidney, acquired
CPT/HCPCS: 74160; Q9967

== ENCOUNTER → 2021-07-15 | Outpatient (CLI) | payer MEDICARE ==
[~2021-07-15] MED LIST changes: -ISOVUE-370 76% 100ML VIAL As Ordered ONE
[2021-07-15 15:56] LABS: BLOOD UREA NITROGEN 15 MG/DL (7-18); CALCIUM LEVEL 9.7 MG/DL (8.8-10.2); CARBON DIOXIDE LEVEL 29 MEQ/L (21-32); CHLORIDE LEVEL 103 MEQ/L (98-107); CHOLESTEROL LEVEL 203 MG/DL (<200); CHOLESTEROL RISK RATIO 5.638 (<5); CREATININE FOR GFR 1.13 MG/DL (0.70-1.30); GLOMERULAR FILTRATION RATE > 60.0 (>49); GLUCOSE, FASTING 106 MG/DL (70-100); HDL CHOLESTEROL 36 MG/DL (>40); NON-HDL-C 167 MG/DL; POTASSIUM SERUM 3.8 MEQ/L (3.5-5.1); SODIUM LEVEL 140 MEQ/L (136-145); TRIGLYCERIDES LEVEL 525 MG/DL (<150)
== END ==
LOC: M WUC 08:57
PROVIDERS: ATTEND Family Medicine
DX: E78.2 Mixed hyperlipidemia (principal); I10 Essential (primary) hypertension

== ENCOUNTER → 2021-09-04 | Outpatient (CLI) | payer MEDICARE ==
[2021-09-04 11:35] LABS: BLOOD UREA NITROGEN 13 MG/DL (7-18); CALCIUM LEVEL 9.2 MG/DL (8.8-10.2); CARBON DIOXIDE LEVEL 32 MEQ/L (21-32); CHLORIDE LEVEL 101 MEQ/L (98-107); CREATININE FOR GFR 1.09 MG/DL (0.70-1.30); GLOMERULAR FILTRATION RATE > 60.0 (>49); GLUCOSE, FASTING 96 MG/DL (70-100); POTASSIUM SERUM 3.4 MEQ/L (3.5-5.1); SODIUM LEVEL 138 MEQ/L (136-145)
== END ==
LOC: M PLALAB 07:14
PROVIDERS: ATTEND Urology
DX: C64.9 Malignant neoplasm of unspecified kidney, except renal pelvis (principal); Z90.5 Acquired absence of kidney

== ENCOUNTER → 2021-09-07 | Outpatient (CLI) | payer MEDICARE ==
[~2021-09-07] MED LIST changes: +GASTROGRAFIN SOLUTION 30ML (Q9963) ONE; +ISOVUE-370 76% 100ML VIAL ONE
== END ==
LOC: M PLAIMG 09:03
PROVIDERS: ATTEND Urology
DX: C64.9 Malignant neoplasm of unspecified kidney, except renal pelvis (principal); Z90.5 Acquired absence of kidney
CPT/HCPCS: 71046; 74177; Q9963; Q9967

== ENCOUNTER → 2022-05-11 | Outpatient (CLI) | payer MEDICARE ==
[~2022-05-11] MED LIST changes: -GASTROGRAFIN SOLUTION 30ML (Q9963) ONE; -ISOVUE-370 76% 100ML VIAL ONE
== END ==
LOC: M SLEEP 20:00
PROVIDERS: ATTEND Nurse Practitioner Family
DX: G47.33 Obstructive sleep apnea (adult) (pediatric) (principal)

== ENCOUNTER → 2022-06-09 | Outpatient (CLI) | payer MEDICARE ==
[2022-06-09 11:53] LABS: ALBUMIN 3.9 G/DL (3.2-5.2); ALKALINE PHOSPHATASE 66 U/L (46-116); ALT/SGPT 47 U/L (7.0-40); AST/SGOT 33 U/L (<34); BILIRUBIN,TOTAL 1.2 MG/DL (0.3-1.2); BLOOD UREA NITROGEN 14 MG/DL (9-23); CARBON DIOXIDE LEVEL 30 MMOL/L (20-31); CHLORIDE LEVEL 100 MMOL/L (98-107); CHOLESTEROL LEVEL 156 MG/DL (<200); CHOLESTEROL RISK RATIO 5.04 (<5); CREATININE FOR GFR 0.93 MG/DL (0.70-1.30); GLOMERULAR FILTRATION RATE > 60.0 (>42); GLUCOSE, FASTING 90 MG/DL (74-106); HDL CHOLESTEROL 30.9 MG/DL (>40); LDL CHOLESTEROL 45.5 MG/DL (<100); NON-HDL-C 125 MG/DL; POTASSIUM SERUM 3.7 MMOL/L (3.5-5.1); SODIUM LEVEL 139 MMOL/L (136-145); TOTAL PROTEIN 7.1 G/DL (5.7-8.2); TRIGLYCERIDES LEVEL 398 MG/DL (<150)
== END ==
LOC: M WUC 08:24
PROVIDERS: ATTEND Family Medicine
DX: E78.5 Hyperlipidemia, unspecified (principal)

== ENCOUNTER → 2023-02-24 | Outpatient (CLI) | payer MEDICARE | LOC: M SLEEP 20:00 | PROVIDERS: ATTEND Nurse Practitioner Family | DX: G47.33 Obstructive sleep apnea (adult) (pediatric) (principal); G47.61 Periodic limb movement disorder ==

== ENCOUNTER → 2023-03-02 | Outpatient (CLI) | payer MEDICARE ==
[2023-03-02 11:04] LABS: ALBUMIN 4.3 G/DL (3.2-5.2); ALKALINE PHOSPHATASE 56 U/L (46-116); ALT/SGPT 20 U/L (7.0-40); AST/SGOT 19 U/L (<34); BILIRUBIN,TOTAL 0.7 MG/DL (0.3-1.2); BLOOD UREA NITROGEN 13 MG/DL (9-23); CALCIUM LEVEL 10.1 MG/DL (8.3-10.6); CARBON DIOXIDE LEVEL 27 MMOL/L (20-31); CHLORIDE LEVEL 105 MMOL/L (98-107); CHOLESTEROL LEVEL 165 MG/DL (<200); CREATININE FOR GFR 1.05 MG/DL (0.70-1.30); GLOMERULAR FILTRATION RATE > 60.0 (>42); GLUCOSE, FASTING 76 MG/DL (74-106); HDL CHOLESTEROL 47.1 MG/DL (>40); LDL CHOLESTEROL 65.7 MG/DL (<100); NON-HDL-C 117.9 MG/DL; POTASSIUM SERUM 4.4 MMOL/L (3.5-5.1); SODIUM LEVEL 141 MMOL/L (136-145); TOTAL PROTEIN 7.3 G/DL (5.7-8.2); TRIGLYCERIDES LEVEL 261 MG/DL (<150)
== END ==
LOC: M WUC 08:06
PROVIDERS: ATTEND Nurse Practitioner Adult Health
DX: E78.2 Mixed hyperlipidemia (principal)

== ENCOUNTER → 2023-07-11 | Outpatient (REF) | payer MEDICARE ==
[2023-07-11 13:16] LABS: BLOOD UREA NITROGEN 15 MG/DL (9-23); CALCIUM LEVEL 9.7 MG/DL (8.3-10.6); CARBON DIOXIDE LEVEL 29 MMOL/L (20-31); CHLORIDE LEVEL 106 MMOL/L (98-107); CREATININE FOR GFR 1.12 MG/DL (0.70-1.30); GLOMERULAR FILTRATION RATE > 60.0 (>42); GLUCOSE, FASTING 98 MG/DL (74-106); POTASSIUM SERUM 4.2 MMOL/L (3.5-5.1); SODIUM LEVEL 139 MMOL/L (136-145)
== END ==
LOC: M LABWUC 12:12
PROVIDERS: ATTEND Nurse Practitioner Adult Health
DX: I10 Essential (primary) hypertension (principal)

== ENCOUNTER → 2023-11-22 | Outpatient (CLI) | payer MEDICARE ==
[2023-11-22 11:05] LABS: BASO # 0.1 10^3/uL (0.0-0.2); BASO % 1.2 % (0.0-1.0); EOS # 0.4 10^3/uL (0.0-0.5); EOS % 6.2 % (0.0-3.0); HEMATOCRIT 42.6 % (42.0-52.0); HEMOGLOBIN 14.8 g/dl (13.5-17.5); LYMPH # 1.4 10^3/uL (1.5-5.0); LYMPH % 24.2 % (24.0-44.0); MEAN CORPUSCULAR HEMOGLOBIN 32.2 pg (27.0-33.0); MEAN CORPUSCULAR HGB CONC 34.7 g/dl (32.0-36.5); MEAN CORPUSCULAR VOLUME 92.8 fl (80.0-96.0); MONO # 0.8 10^3/uL (0.0-0.8); NEUTROPHILS # 3.3 10^3/uL (1.5-8.5); NEUTROPHILS % 54.9 % (36.0-66.0); PLATELET COUNT, AUTOMATED 226 10^3/uL (150-450); RED BLOOD COUNT 4.59 10^6/uL (4.30-6.10); WHITE BLOOD COUNT 5.9 10^3/uL (4.0-10.0)
[2023-11-22 11:40] LABS: ALBUMIN 4.4 G/DL (3.2-5.2); ALKALINE PHOSPHATASE 63 U/L (46-116); ALT/SGPT 19 U/L (7.0-40); AST/SGOT 18 U/L (<34); BILIRUBIN,TOTAL 0.7 MG/DL (0.3-1.2); BLOOD UREA NITROGEN 14 MG/DL (9-23); CALCIUM LEVEL 9.4 MG/DL (8.3-10.6); CARBON DIOXIDE LEVEL 25 MMOL/L (20-31); CHLORIDE LEVEL 106 MMOL/L (98-107); CHOLESTEROL LEVEL 168 MG/DL (<200); CHOLESTEROL RISK RATIO 3.36 (<5); CREATININE FOR GFR 0.99 MG/DL (0.70-1.30); GLOMERULAR FILTRATION RATE > 60.0 (>42); GLUCOSE, FASTING 96 MG/DL (74-106); HDL CHOLESTEROL 49.9 MG/DL (>40); LDL CHOLESTEROL 90.3 MG/DL (<100); NON-HDL-C 118.1 MG/DL; POTASSIUM SERUM 4.5 MMOL/L (3.5-5.1); SODIUM LEVEL 139 MMOL/L (136-145); TOTAL PROTEIN 7.4 G/DL (5.7-8.2); TRIGLYCERIDES LEVEL 139 MG/DL (<150)
[2023-11-22 11:42] LABS: FREE T4 0.81 NG/DL (0.89-1.76); THYROID STIMULATING HORMONE 3.223 uIU/ML (0.55-4.78)
== END ==
LOC: M WUC 08:30
PROVIDERS: ATTEND Nurse Practitioner Adult Health
DX: I10 Essential (primary) hypertension (principal); F41.1 Generalized anxiety disorder; E78.2 Mixed hyperlipidemia

== ENCOUNTER → 2023-12-23 | Outpatient (REF) | payer MEDICARE ==
[2023-12-23 12:18] LABS: ALBUMIN 4.3 G/DL (3.2-5.2); BLOOD UREA NITROGEN 17 MG/DL (9-23); CARBON DIOXIDE LEVEL 26 MMOL/L (20-31); CHLORIDE LEVEL 104 MMOL/L (98-107); CREATININE FOR GFR 1.07 MG/DL (0.70-1.30); GLOMERULAR FILTRATION RATE > 60.0 (>42); GLUCOSE, FASTING 95 MG/DL (74-106); PHOSPHORUS LEVEL 3.3 MG/DL (2.4-5.1); POTASSIUM SERUM 4.4 MMOL/L (3.5-5.1); SODIUM LEVEL 138 MMOL/L (136-145)
== END ==
LOC: M LABWUC 11:01
PROVIDERS: ATTEND Nurse Practitioner Family
DX: N18.2 Chronic kidney disease, stage 2 (mild) (principal)

== ENCOUNTER → 2024-02-24 | Outpatient (CLI) | payer MEDICARE ==
[2024-02-24 17:36] LABS: BLOOD UREA NITROGEN 19 MG/DL (9-23); CALCIUM LEVEL 9.9 MG/DL (8.3-10.6); CARBON DIOXIDE LEVEL 24 MMOL/L (20-31); CHLORIDE LEVEL 106 MMOL/L (98-107); CREATININE FOR GFR 1.15 MG/DL (0.70-1.30); GLOMERULAR FILTRATION RATE > 60.0 (>42); GLUCOSE, FASTING 91 MG/DL (74-106); POTASSIUM SERUM 4.1 MMOL/L (3.5-5.1); SODIUM LEVEL 139 MMOL/L (136-145)
== END ==
LOC: M WUC 11:39
PROVIDERS: ATTEND Nurse Practitioner Adult Health
DX: I10 Essential (primary) hypertension (principal)

== ENCOUNTER → 2024-06-13 | Outpatient (REF) | payer MEDICARE ==
[2024-06-13 16:59] LABS: BLOOD UREA NITROGEN 20 MG/DL (9-23); CALCIUM LEVEL 9.8 MG/DL (8.3-10.6); CARBON DIOXIDE LEVEL 24 MMOL/L (20-31); CHLORIDE LEVEL 103 MMOL/L (98-107); GLOMERULAR FILTRATION RATE > 60.0 (>42); GLUCOSE, FASTING 99 MG/DL (74-106); POTASSIUM SERUM 4.9 MMOL/L (3.5-5.1); SODIUM LEVEL 134 MMOL/L (136-145)
== END ==
LOC: M LABWUC 16:14
PROVIDERS: ATTEND Nurse Practitioner Adult Health
DX: I10 Essential (primary) hypertension (principal)

== ENCOUNTER → 2024-09-18 | Outpatient (CLI) | payer MEDICARE | LOC: M RAD 08:02 | PROVIDERS: ATTEND Nurse Practitioner Family | DX: N28.1 Cyst of kidney, acquired (principal); Z85.528 Personal history of other malignant neoplasm of kidney; N18.2 Chronic kidney disease, stage 2 (mild); Z90.5 Acquired absence of kidney ==

== ENCOUNTER → 2025-03-01 | Outpatient (CLI) | payer MEDICARE ==
[~2025-03-01] MED LIST changes: +LISI40TA10 PO; -LISI40TA4 PO; -PRAV40TA2 PO; +PRAV40TA85 PO
[2025-03-01 12:30] LABS: BASO # 0.1 10^3/uL (0.0-0.2); BASO % 1.6 % (0.0-1.0); EOS # 0.5 10^3/uL (0.0-0.5); EOS % 7.8 % (0.0-3.0); LYMPH # 1.4 10^3/uL (1.5-5.0); LYMPH % 23.7 % (24.0-44.0); MONO # 1.0 10^3/uL (0.0-0.8); MONO % 16.6 % (2.0-8.0); NEUTROPHILS # 2.9 10^3/uL (1.5-8.5); NEUTROPHILS % 49.6 % (36.0-66.0); PLATELET COUNT, AUTOMATED 261 10^3/uL (150-450)
[2025-03-01 12:40] LABS: ESTIMATED AVERAGE GLUCOSE 126.0 MG/DL (60-110)
[2025-03-01 13:00] LABS: FREE T4 0.82 NG/DL (0.89-1.76)
[2025-03-01 13:03] LABS: ALT/SGPT 19.0 U/L (7.0-40); AST/SGOT 23.0 U/L (<34); CALCIUM LEVEL 10.0 MG/DL (8.3-10.6); CARBON DIOXIDE LEVEL 27.0 MMOL/L (20-31); CHLORIDE LEVEL 105.0 MMOL/L (98-107); CHOLESTEROL LEVEL 173.0 MG/DL (<200); CHOLESTEROL RISK RATIO 3.65 (<5); CREATININE FOR GFR 1.2 MG/DL (0.70-1.30); GLOMERULAR FILTRATION RATE 63.9 (>42); LDL CHOLESTEROL 88.3 MG/DL (<100); NON-HDL-C 125.7 MG/DL; POTASSIUM SERUM 4.5 MMOL/L (3.5-5.1); SODIUM LEVEL 143.0 MMOL/L (136-145); TRIGLYCERIDES LEVEL 187.0 MG/DL (<150)
== END ==
LOC: M WUC 08:14
PROVIDERS: ATTEND Nurse Practitioner Adult Health
DX: I10 Essential (primary) hypertension (principal); Z79.899 Other long term (current) drug therapy

== ENCOUNTER 2025-03-27 08:26 | Day surgery (SDC) | payer MEDICARE ==
[~2025-03-27] VITALS: Ht 180.3 cm; Wt 103.4 kg
[~2025-03-27 08:26] MED LIST changes: +ALLO100T PO; +ATOR40TA75 PO; +FAMO20TA5 PO; +HYDR-3490 PO; +LOSA100T8 PO; +POTA-149 PO; +PRAZ1CAP PO; +THERTAB52 PO
[2025-03-27] MEDS ORDERED: LIDOCAINE 2% 100 MG/5 ML SDV (FOR ANES.) As Ordered ONE (10:37)
[2025-03-27 10:38] VITALS: TEMP 97.6
[2025-03-27 11:00] VITALS: BP 132/72; O2SAT 98
== END 2025-03-27 11:11 | disposition home or self-care (01) ==
LOC: M OPP 08:26
PROVIDERS: ATTEND Internal Medicine Gastroenterology
DX: Z12.11 Encounter for screening for malignant neoplasm of colon (principal); K63.5 Polyp of colon; K64.0 First degree hemorrhoids; G47.30 Sleep apnea, unspecified; Z79.899 Other long term (current) drug therapy